=== PATIENT | female | born 1980 | race Two or more races ===

== ENCOUNTER 2023-10-23 07:21 | Emergency (ER) | payer OTHER ==
[~2023-10-23] VITALS: Ht 157.5 cm; Wt 86.2 kg
[2023-10-23] MEDS ORDERED: NEURONTIN300 MG PO (07:39)
[2023-10-23] MEDS ORDERED: KEPPRA500 MG (07:39)
[2023-10-23] MEDS ORDERED: ACETAMINOPHEN 500 MG GEL..CAP PO ONE (07:43)
[2023-10-23] MEDS ORDERED: SUMATRIPTAN SUCCINATE 6 MG/0.5 ML VIAL SUBCUTANEO STA (08:28)
[2023-10-23] MEDS ORDERED: ORPHENADRINE CITRATE 30 MG/ML AMPUL IM STA (08:28)
[2023-10-23] MEDS ORDERED: EC-NAPROXEN500 MG PO (08:37)
[2023-10-23] MEDS ORDERED: ORPHENADRINE CITRATE 30 MG/ML AMPUL ONE (08:40)
[2023-10-23] MEDS ORDERED: SUMATRIPTAN SUCCINATE 6 MG/0.5 ML VIAL SUBCUTANEO ONE (08:40)
== END 2023-10-23 08:53 | disposition home or self-care (01) ==
LOC: ER 07:22
DX: R51.9 Headache, unspecified (principal); Z88.8 Allergy status to other drugs, medicaments and biological substances

== ENCOUNTER 2023-11-30 07:04 | Emergency (ER) | payer OTHER ==
[~2023-11-30] VITALS: Ht 157.5 cm; Wt 86.2 kg
[~2023-11-30 07:04] MED LIST: EC-NAPROXEN500 MG PO; KEPPRA500 MG; NEURONTIN300 MG PO
[2023-11-30] MEDS ORDERED: LORazepam 2 MG/ML VIAL ONE (08:29)
[2023-11-30] MEDS ORDERED: LORazepam 2 MG/ML VIAL IM ONE (08:30)
[2023-11-30] MEDS ORDERED: LevETIRAcetam 500 MG/5 ML VIAL IV ONE (08:30)
[2023-11-30 09:13] LABS: HEMATOCRIT 40.3 % (36.0-45.00); HEMOGLOBIN 14.4 g/dL (12.0-15.00); MEAN CELL VOLUME 87.4 fL (80.00-100.00); MEAN CORPUSCULAR HEMOGLOBIN 31.3 pg (27.00-32.0); MEAN CORPUSCULAR HGB CONC 35.8 g/dl (32.0-36.0); PLATELET COUNT 302 K/uL (150-450); RED BLOOD COUNT 4.61 M/uL (4.00-6.00); RED CELL DISTRIBUTION WIDTH 12.5 % (11.5-14.5)
[2023-11-30 09:53] LABS: CALCIUM 9.7 mg/dL (8.5-10.1); CREATININE SERUM 0.72 mg/dL (0.55-1.02); GFR 88.41; POTASSIUM 3.69 mEq/L (3.5-5.1)
== END 2023-11-30 12:38 | disposition home or self-care (01) ==
LOC: ER 07:05
PROVIDERS: Emergency Medicine
DX: G40.802 Other epilepsy, not intractable, without status epilepticus (principal); Z91.013 Allergy to seafood; Z88.8 Allergy status to other drugs, medicaments and biological substances

== ENCOUNTER 2023-12-02 17:48 | Emergency (ER) | payer OTHER ==
[~2023-12-02] VITALS: Ht 157.5 cm; Wt 86.2 kg
[2023-12-02] MEDS ORDERED: KAPSPARGO SPRIN25 MG (17:59)
[2023-12-02] MEDS ORDERED: cloNIDine HCL 0.2 MG TABLET PO ONE (18:15)
[2023-12-02] MEDS ORDERED: CLONIDINE HCL 0.1 MG TABLET PO ONE (18:18)
== END 2023-12-02 19:20 | disposition home or self-care (01) ==
LOC: ER 17:49
DX: I10 Essential (primary) hypertension (principal); Z88.6 Allergy status to analgesic agent; Z91.013 Allergy to seafood

== ENCOUNTER 2023-12-22 13:09 | Emergency (ER) | payer OTHER ==
[~2023-12-22] VITALS: Ht 157.5 cm; Wt 86.2 kg
[~2023-12-22 13:09] MED LIST changes: +KAPSPARGO SPRIN25 MG
[2023-12-22] MEDS ORDERED: ORPHENADRINE CITRATE 30 MG/ML AMPUL IM STA (14:57)
[2023-12-22] MEDS ORDERED: DEXAMETHASONE SODIUM PHOSPHATE 4 MG/ML VIAL IM STA (14:58)
[2023-12-22] MEDS ORDERED: ORPHENADRINE CITRATE 30 MG/ML AMPUL ONE (15:06)
[2023-12-22] MEDS ORDERED: DEXAMETHASONE SODIUM PHOSPHATE 4 MG/ML VIAL ONE (15:07)
== END 2023-12-22 19:44 | disposition home or self-care (01) ==
LOC: ER 13:11
DX: S30.0XXA Contusion of lower back and pelvis, initial encounter (principal); W18.30XA Fall on same level, unspecified, initial encounter; Y93.9 Activity, unspecified; Y92.012 Bathroom of single-family (private) house as the place of occurrence of the external cause; Y99.9 Unspecified external cause status

== ENCOUNTER 2024-01-01 17:26 | Emergency (ER) | payer OTHER ==
[~2024-01-01] VITALS: Ht 167.6 cm; Wt 81.6 kg
[2024-01-01] MEDS ORDERED: FAMOtidine 10 MG/ML (4ML VIAL) IV ONE (18:00)
[2024-01-01] MEDS ORDERED: HALOPERIDOL 0.5 MG TABLET PO ONE (18:00)
[2024-01-01] MEDS ORDERED: 0.9 % SODIUM CHLORIDE 1,000 ML IV ONE (18:00)
[2024-01-01] MEDS ORDERED: LevETIRAcetam 500 MG/5 ML VIAL IV SCH (18:37)
[2024-01-01] MEDS ORDERED: LORazepam 2 MG/ML VIAL IM ONE (18:45)
[2024-01-01 19:25] LABS: HEMATOCRIT 42.4 % (36.0-45.00); HEMOGLOBIN 14.8 g/dL (12.0-15.00); MEAN CELL VOLUME 88.5 fL (80.00-100.00); MEAN CORPUSCULAR HEMOGLOBIN 30.9 pg (27.00-32.0); PLATELET COUNT 340 K/uL (150-450); RED BLOOD COUNT 4.79 M/uL (4.00-6.00); RED CELL DISTRIBUTION WIDTH 12.6 % (11.5-14.5)
[2024-01-01 19:50] LABS: URINE APPEARANCE Clear; URINE BILIRRUBIN Negative (NEGATIVE); URINE BLOOD Negative; URINE COLOR Yellow; URINE KETONE Negative (NEGATIVE); URINE LEUKOCYTE Negative; URINE NITRATE Negative; URINE PROTEIN Negative (NEGATIVE); URINE UROBILINOGEN 0.2 E.U./dl
[2024-01-01 19:54] LABS: INR 0.97; PARTIAL THROMBOPLASTIN TIME 28.3 SECONDS (22.0-34.0); PROTHROMBIN TIME 10.6 SECONDS (9.0-11.5)
[2024-01-01 19:54] LABS: URINE BACTERIA 587.1 uL (0.0-1933)
[2024-01-01 19:56] LABS: ALBUMIN 4.3 gm/dL (3.4-5.0); BILIRUBIN TOTAL 0.45 mg/dL (0.3-1.2); CALCIUM 9.9 mg/dL (8.5-10.1); CREATININE SERUM 0.73 mg/dL (0.55-1.02); GFR 87.01; GLOBULINA 3.6 G/DL (2.4-3.5); POTASSIUM 4.04 mEq/L (3.5-5.1); TOTAL PROTEIN 7.9 gm/dL (6.4-8.2)
[2024-01-01 19:58] LABS: URINE GLUCOSE >=1000 MG/DL (NEGATIVE); URINE RBC 1.6 uL (0.0-20.8)
[2024-01-01 20:03] LABS: COCAINE NEGATIVE (NEGATIVE); METHADONE NEGATIVE (NEGATIVE); OPIATES NEGATIVE (NEGATIVE); THC ( Cannabinoids) NEGATIVE (NEGATIVE)
[2024-01-01] MEDS ORDERED: ACETAMINOPHEN 325 MG TABLET PO ONE (21:00)
[2024-01-01] MEDS ORDERED: BUTALB/ACETAMINOPHEN/CAFFEINE 1 TAB TABLET PO ONE (23:15)
[2024-01-02] MEDS ORDERED: ZOLPIDEM TARTRATE 10 MG TABLET PO STA (02:25)
[2024-01-02] MEDS ORDERED: HALOPERIDOL LACTATE 5 MG/ML AMPUL IM STA (08:12)
[2024-01-02] MEDS ORDERED: DIPHENHYDRAMINE HCL 50 MG/ML VIAL 1ML IM STA (08:13)
[2024-01-02] MEDS ORDERED: LevETIRAcetam 500 MG TAB. PO SCH (10:05)
== END 2024-01-02 16:51 | disposition designated cancer center or children's hospital (05) ==
LOC: ER 17:26
PROVIDERS: General Practice
DX: R45.851 Suicidal ideations (principal); Z91.013 Allergy to seafood; Z88.6 Allergy status to analgesic agent; Z85.3 Personal history of malignant neoplasm of breast; Z85.42 Personal history of malignant neoplasm of other parts of uterus; M79.7 Fibromyalgia; G40.802 Other epilepsy, not intractable, without status epilepticus; F41.8 Other specified anxiety disorders

== ENCOUNTER 2024-04-16 15:45 | Outpatient (CLI) | payer OTHER | END 2024-04-16 15:55 | disposition home or self-care (01) | LOC: PPH VACUNA 15:45 | PROVIDERS: ATTEND Emergency Medicine Pediatric Emergency Medicine | DX: Z23 Encounter for immunization (principal) ==

== ENCOUNTER 2024-05-13 10:14 | Outpatient (CLI) | payer OTHER | END 2024-05-13 10:17 | disposition home or self-care (01) | LOC: SONOGRAMA 10:14 | DX: R10.31 Right lower quadrant pain (principal) ==

== ENCOUNTER 2024-05-13 12:33 | Outpatient (CLI) | payer OTHER | END 2024-05-13 14:49 | disposition home or self-care (01) | LOC: LAB 12:33 | DX: R05.9 Cough, unspecified (principal); R50.9 Fever, unspecified ==